=== PATIENT | female | born 1955 | race Caucasian/White ===

== ENCOUNTER → 2018-09-27 | Day surgery (SDC) | payer BC ==
[~2018-09-27] MED LIST: METH500T PO; diatrozoate meglu/diatrozoate sod (37% iodine) 120ML oral solution ONE
== END | disposition home or self-care (01) ==
LOC: RAD 09:40
PROVIDERS: ATTEND Surgery
DX: K63.89 Other specified diseases of intestine (principal); Z43.3 Encounter for attention to colostomy
CPT/HCPCS: 74270; Q9963

== ENCOUNTER → 2018-10-06 | Day surgery (SDC) | payer BC | END | disposition home or self-care (01) | LOC: RAD 10:48 | PROVIDERS: ATTEND Surgery | DX: Z43.3 Encounter for attention to colostomy (principal) | CPT/HCPCS: 74270; Q9963 ==

== ENCOUNTER 2021-11-20 17:21 | Emergency (ER) | payer BC, MEDICARE ==
[~2021-11-20] VITALS: Ht 154.9 cm; Wt 63.6 kg
[~2021-11-20 17:21] MED LIST changes: +LINE600T11 PO; -METH500T PO; +NO HOME MEDS; +SULF1TAB49 PO; -diatrozoate meglu/diatrozoate sod (37% iodine) 120ML oral solution ONE
[2021-11-20 18:15] VITALS: BP 141/75
[2021-11-20] MEDS ORDERED: naproxen 500mg tablet PO ONE (19:50)
== END 2021-11-20 20:01 | disposition home or self-care (01) ==
LOC: ER 17:22
DX: S20.212A Contusion of left front wall of thorax, initial encounter (principal); Z88.1 Allergy status to other antibiotic agents; Z88.8 Allergy status to other drugs, medicaments and biological substances; Z79.899 Other long term (current) drug therapy; W18.09XA Striking against other object with subsequent fall, initial encounter; Z91.81 History of falling; Y93.89 Activity, other specified; Y92.89 Other specified places as the place of occurrence of the external cause; Y99.8 Other external cause status
CPT/HCPCS: 71100; 99284

== ENCOUNTER 2023-04-16 16:16 | Emergency (ER) | payer BC, MEDICARE ==
[~2023-04-16] VITALS: Ht 154.9 cm; Wt 53.7 kg
[2023-04-16 17:13] LABS: D-DIMER 1.74 MG/L FEU (0-0.50)
--- NOTE | 2023-04-16 18:37 | NUR ---
PAGED AJAY X2.
--- NOTE | 2023-04-16 19:12 | NUR ---
AGREE WITH LAUREN, SOLAR MAINTENANCE TECHNICIAN ASSESSMENT, REVIEWED.
[2023-04-16 20:24] VITALS: BP 150/72; PULSE 78; RESP 18; TEMP 98.2; O2SAT 99
== END 2023-04-16 20:32 | disposition home or self-care (01) ==
LOC: ER 16:17
DX: M79.605 Pain in left leg (principal); R19.09 Other intra-abdominal and pelvic swelling, mass and lump
CPT/HCPCS: 36415; 85379; 93971; 99284

== ENCOUNTER 2023-06-20 15:16 | Emergency (ER) | payer BC, MEDICARE ==
[~2023-06-20] VITALS: Ht 154.9 cm; Wt 49.5 kg
[2023-06-20 16:04] VITALS: BP 187/109; PULSE 79; O2SAT 95
[2023-06-20 16:14] VITALS: RESP 18
[2023-06-20 16:48] LABS: BILIRUBIN,URINE NEGATIVE (Neg); CLARITY,URINE CLEAR (Clear); COLOR,URINE YELLOW (Yellow); GLUCOSE, URINE NEGATIVE (Neg); KETONES,URINE NEGATIVE (Neg); LEUKOCYTE ESTERASE ,URINE NEGATIVE (Neg); NITRITES, URINE NEGATIVE (Neg); OCCULT BLOOD,URINE NEGATIVE (Neg); PROTEIN,URINE NEGATIVE (Neg); UROBILINOGEN,URINE 0.2 E.U/dL (0.2-1.0)
[2023-06-20 16:51] LABS: UA COLLECTION TYPE CLN CATCH MIDSTREAM
[2023-06-20 16:55] LABS: BASOPHILS % (AUTO) 0.3 % (0-1); EOSINOPHILS # (AUTO) 0.1 X10'3 (0-0.9); EOSINOPHILS % (AUTO) 1.1 % (0-6); HEMATOCRIT 33.5 % (35.0-45.0); LYMPHOCYTES # (AUTO) 1.8 X10'3 (1.1-4.8); LYMPHOCYTES % (AUTO) 22.1 % (21-51); MEAN CORPUSCULAR HEMOGLOBIN 28.6 PG (27.0-31.0); MEAN CORPUSCULAR HGB CONC 32.8 g/dL (33.0-36.5); MEAN CORPUSCULAR VOLUME 87.3 FL (78-98); MEAN PLATELET VOLUME 7.5 FL (7.4-10.4); MONOCYTES # (AUTO) 0.3 X10'3 (0-0.9); MONOCYTES % (AUTO) 4.1 % (2-12); NEUTROPHILS # (AUTO) 5.8 X10'3 (1.8-7.7); NEUTROPHILS % (AUTO) 72.4 % (42-75); PLATELET COUNT 475 X10'3 (140-440); RED BLOOD COUNT 3.84 X10'6 (4.20-5.60); RED CELL DISTRIBUTION WIDTH 16.5 % (11.5-14.5)
[2023-06-20 17:05] LABS: ALANINE AMINOTRANSFERASE 12 U/L (12-78); ALBUMIN 2.6 G/DL (3.4-5.0); ALBUMIN/GLOBULIN RATIO 0.5 (1.1-1.5); ALKALINE PHOSPHATASE 115 IU/L (46-116); ANION GAP 11 (8-16); ASPARTATE AMINO TRANSFERASE 21 U/L (10-37); BILIRUBIN,TOTAL 0.4 MG/DL (0.1-1.0); BLOOD UREA NITROGEN 8 MG/DL (7-18); BUN/CREATININE RATIO 9.6 (10.0-20.0); CALCIUM 8.7 MG/DL (8.5-10.1); CHLORIDE 103 MMOL/L (99-107); CREATININE 0.83 MG/DL (0.40-0.90); GLUCOSE 99 MG/DL (70-104); LIPASE 58 U/L (16-77); POTASSIUM 3.5 MMOL/L (3.5-5.1); SODIUM 140 MMOL/L (135-145); TOTAL PROTEIN 7.7 G/DL (6.4-8.2); eCRCL 50 ML/MIN; eGFR 69 ML/MIN
[2023-06-20] MEDS ORDERED: iohexol 300mg/ml 100ml inj. ONE (17:18)
[2023-06-20] MEDS ORDERED: HYDROcodone/acetaminophen 10/325mg tab PO ONE (19:00)
[2023-06-20] MEDS ORDERED: HYDR-3973 PO (19:14)
[2023-06-20 19:30] VITALS: TEMP 97.4
== END 2023-06-20 19:37 | disposition home or self-care (01) ==
LOC: ER 15:16
DX: C76.2 Malignant neoplasm of abdomen (principal); M54.50 Low back pain, unspecified; K62.89 Other specified diseases of anus and rectum; Z88.1 Allergy status to other antibiotic agents; Z88.8 Allergy status to other drugs, medicaments and biological substances; Z79.899 Other long term (current) drug therapy
CPT/HCPCS: 36415; 74177; 80053; 81003; 83690; 85025; 99285; J3490; Q9967

== ENCOUNTER 2023-08-25 09:34 | Outpatient (CLI) | payer BC, MEDICARE ==
[2023-08-25 10:12] LABS: ALBUMIN 2.3 G/DL (3.4-5.0); ANION GAP 12 (8-16); BLOOD UREA NITROGEN 10 MG/DL (7-18); BUN/CREATININE RATIO 12.3 (10.0-20.0); CALCIUM 8.3 MG/DL (8.5-10.1); CHLORIDE 107 MMOL/L (99-107); CREATININE 0.81 MG/DL (0.40-0.90); GLUCOSE 94 MG/DL (70-104); POTASSIUM 3.1 MMOL/L (3.5-5.1); SODIUM 142 MMOL/L (135-145); TOTAL CARBON DIOXIDE 23.2 MMOL/L (24-32); eGFR 71 ML/MIN
[2023-08-25] MEDS ORDERED: iohexol 300mg/ml 100ml inj. ONE (10:19)
== END 2023-08-25 23:59 | disposition home or self-care (01) ==
LOC: RAD 09:34
PROVIDERS: ATTEND Internal Medicine Interventional Cardiology
DX: C78.30 Secondary malignant neoplasm of unspecified respiratory organ (principal); C78.80 Secondary malignant neoplasm of unspecified digestive organ; K40.90 Unilateral inguinal hernia, without obstruction or gangrene, not specified as recurrent; N13.30 Unspecified hydronephrosis; K82.8 Other specified diseases of gallbladder; R07.9 Chest pain, unspecified; R00.0 Tachycardia, unspecified; R00.1 Bradycardia, unspecified; R91.1 Solitary pulmonary nodule; J98.11 Atelectasis
CPT/HCPCS: 36415; 71260; 74178; 80048; J3490; Q9967

== ENCOUNTER 2023-08-25 11:59 | Outpatient (CLI) | payer BC, MEDICARE ==
[2023-08-25 13:03] LABS: BASOPHILS # (AUTO) 0.1 X10'3 (0-0.2); BASOPHILS % (AUTO) 0.6 % (0-1); EOSINOPHILS # (AUTO) 0.1 X10'3 (0-0.9); EOSINOPHILS % (AUTO) 0.7 % (0-6); MEAN PLATELET VOLUME 6.9 FL (7.4-10.4); MONOCYTES # (AUTO) 0.6 X10'3 (0-0.9); WHITE BLOOD COUNT 9.2 X10'3 (4.5-11.0)
[2023-08-25 13:06] LABS: HEMATOCRIT 28.6 % (35.0-45.0); HEMOGLOBIN 9.7 g/dl (12.0-16.0); LYMPHOCYTES # (AUTO) 1.2 X10'3 (1.1-4.8); MEAN CORPUSCULAR HEMOGLOBIN 29.9 PG (27.0-31.0); MEAN CORPUSCULAR HGB CONC 33.8 g/dL (33.0-36.5); MEAN CORPUSCULAR VOLUME 88.6 FL (78-98); MONOCYTES % (AUTO) 6.8 % (2-12); NEUTROPHILS # (AUTO) 7.3 X10'3 (1.8-7.7); NEUTROPHILS % (AUTO) 78.9 % (42-75); PLATELET COUNT 656 X10'3 (140-440); RED BLOOD COUNT 3.23 X10'6 (4.20-5.60); RED CELL DISTRIBUTION WIDTH 18.8 % (11.5-14.5)
[2023-08-25 13:27] LABS: % IRON SATURATION 9 % (11-46); IRON 17 UG/DL (49-151); TOTAL IRON BINDING CAPACITY 184 UG/DL (259-388)
[2023-08-25 13:34] LABS: FERRITIN 380 NG/ML (8-252)
[2023-08-25 14:38] LABS: ANISOCYTOSIS 2+; BURR CELLS FEW; ELLIPTOCYTES FEW; PLATELET ESTIMATE INCREASED; POLYCHROMASIA FEW; SCHISTOCYTES FEW
== END 2023-08-25 23:59 | disposition home or self-care (01) ==
LOC: LAB 11:59
PROVIDERS: ATTEND Surgery
DX: C78.6 Secondary malignant neoplasm of retroperitoneum and peritoneum (principal)
CPT/HCPCS: 36415; 82728; 83540; 83550; 85008; 85025

== ENCOUNTER 2023-11-26 13:37 | Inpatient (IN) | payer BC, MEDICARE ==
[~2023-11-26] VITALS: Ht 160 cm; Wt 44.9 kg
[2023-11-26] MEDS: HYDROmorphone 1 mg/ml syringe IV ONE ×2 (14:49→18:31)
[2023-11-26] MEDS: ondansetron/PF 4mg/2ml inj IV ONE (14:49)
[2023-11-26 15:49] LABS: EOSINOPHILS % (AUTO) 0.2 % (0-6); HEMOGLOBIN 12.9 g/dl (12.0-16.0); MONOCYTES # (AUTO) 0.4 X10'3 (0-0.9); NEUTROPHILS # (AUTO) 16.2 X10'3 (1.8-7.7)
[2023-11-26 15:51] LABS: BASOPHILS # (AUTO) 0.1 X10'3 (0-0.2); BASOPHILS % (AUTO) 0.3 % (0-1); HEMATOCRIT 40.1 % (35.0-45.0); LYMPHOCYTES # (AUTO) 1.6 X10'3 (1.1-4.8); LYMPHOCYTES % (AUTO) 8.8 % (21-51); MEAN CORPUSCULAR HEMOGLOBIN 28.9 PG (27.0-31.0); MEAN CORPUSCULAR HGB CONC 32.2 g/dL (33.0-36.5); MEAN CORPUSCULAR VOLUME 89.7 FL (78-98); MEAN PLATELET VOLUME 7.4 FL (7.4-10.4); MONOCYTES % (AUTO) 2.3 % (2-12); NEUTROPHILS % (AUTO) 88.4 % (42-75); PLATELET COUNT 587 X10'3 (140-440); RED BLOOD COUNT 4.47 X10'6 (4.20-5.60); RED CELL DISTRIBUTION WIDTH 18.7 % (11.5-14.5); WHITE BLOOD COUNT 18.3 X10'3 (4.5-11.0)
[2023-11-26] MEDS: normal saline 1000ML IV soln IVB ONE (15:54)
[2023-11-26 16:00] LABS: ANION GAP 9 (8-16); BLOOD UREA NITROGEN 24 MG/DL (7-18); BUN/CREATININE RATIO 29.6 (10.0-20.0); CALCIUM 8.6 MG/DL (8.5-10.1); CHLORIDE 105 MMOL/L (99-107); CREATININE 0.81 MG/DL (0.40-0.90); GLUCOSE 135 MG/DL (70-104); LIPASE 86 U/L (16-77); POTASSIUM 3.3 MMOL/L (3.5-5.1); SODIUM 140 MMOL/L (135-145); TOTAL CARBON DIOXIDE 25.8 MMOL/L (24-32); eCRCL 57 ML/MIN; eGFR 71 ML/MIN
[2023-11-26] MEDS ORDERED: iohexol 300mg/ml 100ml inj. ONE (16:06)
[2023-11-26 16:14] LABS: ANISOCYTOSIS 2+; BURR CELLS FEW; PLATELET ESTIMATE INCREASED; TARGET CELLS FEW; TEAR DROP CELLS FEW
[2023-11-26 16:15] LABS: GIANT PLATELET FEW; LARGE PLATELETS FEW
[2023-11-26] MEDS ORDERED: FURO-150 PO (16:32)
[2023-11-26] MEDS ORDERED: HYDROmorphone 1 mg/ml syringe IM ONE (18:25)
[2023-11-26 20:32] LABS: BILIRUBIN,URINE NEGATIVE (Neg); CLARITY,URINE CLOUDY (Clear); COLOR,URINE YELLOW (Yellow); GLUCOSE, URINE NEGATIVE (Neg); KETONES,URINE NEGATIVE (Neg); LEUKOCYTE ESTERASE ,URINE MODERATE (Neg); NITRITES, URINE NEGATIVE (Neg); OCCULT BLOOD,URINE TRACE-INTACT (Neg); PH,URINE 6.5 (4.8-8.0); PROTEIN,URINE TRACE mg/dl (Neg); UROBILINOGEN,URINE 0.2 E.U/dL (0.2-1.0)
[2023-11-26 20:48] LABS: UA COLLECTION TYPE FOLEY CATH
[2023-11-26 20:50] LABS: BACTERIA,URINE 1+ /HPF (Neg); FINE GRANULAR CAST 0-3 /LPF (NEGATIVE); MUCUS STRANDS NONE SEEN /LPF (Neg); RBC,URINE 0-2 /HPF (0-2); SQUAMOUS EPITHELIAL CELL,UR FEW /LPF (FEW); TRANSITIONAL EPI CELLS,URINE FEW /HPF; WBC,URINE TNTC /HPF (0-4)
[2023-11-26] MEDS ORDERED: potassium Cl 20 mEq SR tablet PO PRN ×2 (20:55)
[2023-11-26] MEDS ORDERED: magnesium Cl slow-release 64mg tablet PO PRN (20:55)
[2023-11-26] MEDS ORDERED: magnesium 4gm in 100ml NS 100 ML IV PRN (20:55)
[2023-11-26] MEDS ORDERED: magnesium 2GM in 50ml NS 50 ML IV PRN (20:55)
[2023-11-26] MEDS: CefTRIAXone/D5W-Rocephin 1gm 50 ML IV SCH (22:03)
[2023-11-26] MEDS: normal saline 1000ml 1,000 ML IV SCH (22:03)
[2023-11-26] MEDS: metroNIDAZOLE-Flagyl 500mg/NS 100 ML IV SCH (22:43)
[2023-11-26 23:00] VITALS: BP 165/95; PULSE 77; RESP 16; TEMP 97.5; O2SAT 98
[2023-11-27] VITALS (7 sets, daily range): BP systolic 120–159; BP diastolic 69–98; PULSE 60–80; RESP 14–16; TEMP 97.5–98; O2SAT 93–98
[2023-11-27] MEDS ORDERED: cefoxitin sod inj 2,000 MG in normal saline 100ml IV soln 100 ML IV SCH
[2023-11-27] MEDS: morphine 2 MG/ML inj. syringe IV PRN (03:59)
[2023-11-27 07:37] LABS: BASOPHILS % (AUTO) 0.4 % (0-1); EOSINOPHILS # (AUTO) 0.1 X10'3 (0-0.9); EOSINOPHILS % (AUTO) 1.4 % (0-6); HEMOGLOBIN 10.9 g/dl (12.0-16.0); LYMPHOCYTES # (AUTO) 1.6 X10'3 (1.1-4.8); LYMPHOCYTES % (AUTO) 20.4 % (21-51); MEAN CORPUSCULAR HEMOGLOBIN 29.6 PG (27.0-31.0); MEAN CORPUSCULAR HGB CONC 32.9 g/dL (33.0-36.5); MEAN CORPUSCULAR VOLUME 89.9 FL (78-98); MEAN PLATELET VOLUME 7.3 FL (7.4-10.4); MONOCYTES # (AUTO) 0.6 X10'3 (0-0.9); NEUTROPHILS # (AUTO) 5.4 X10'3 (1.8-7.7); NEUTROPHILS % (AUTO) 69.8 % (42-75); PLATELET COUNT 519 X10'3 (140-440); RED BLOOD COUNT 3.67 X10'6 (4.20-5.60); RED CELL DISTRIBUTION WIDTH 18.4 % (11.5-14.5); WHITE BLOOD COUNT 7.8 X10'3 (4.5-11.0)
[2023-11-27 07:48] LABS: APTT 28 SECONDS (22-32); PROTHROMBIN TIME 10.9 SECONDS (9.0-12.0)
[2023-11-27 08:19] LABS: ALANINE AMINOTRANSFERASE 20 U/L (12-78); ALBUMIN 2.6 G/DL (3.4-5.0); ALBUMIN/GLOBULIN RATIO 0.6 (1.1-1.5); ALKALINE PHOSPHATASE 81 IU/L (46-116); ANION GAP 10 (8-16); ASPARTATE AMINO TRANSFERASE 14 U/L (10-37); BILIRUBIN,TOTAL 0.4 MG/DL (0.1-1.0); BLOOD UREA NITROGEN 24 MG/DL (7-18); CALCIUM 8.1 MG/DL (8.5-10.1); CHLORIDE 108 MMOL/L (99-107); CHOL/HDL RATIO 3.6 (0.00-4.99); CHOLESTEROL 198 MG/DL (0-200); CREATININE 0.89 MG/DL (0.40-0.90); FREE T4 (FREE THYROXINE) 0.96 NG/DL (0.73-1.40); GLUCOSE 115 MG/DL (70-104); HDL CHOLESTEROL 55 MG/DL (35-60); LDL CHOLESTEROL 126 MG/DL (50-100); MAGNESIUM 2.3 MG/DL (1.5-2.4); PHOSPHORUS 4.3 MG/DL (2.3-4.5); SODIUM 143 MMOL/L (135-145); THYROID STIMULATING HORMONE 0.81 ulU/ml (0.34-4.50); TOTAL CARBON DIOXIDE 25.2 MMOL/L (24-32); TOTAL PROTEIN 6.7 G/DL (6.4-8.2); TRIGLYCERIDES 72 MG/DL (20-135); eCRCL 51 ML/MIN; eGFR 63 ML/MIN
[2023-11-27 08:42] LABS: HEMOGLOBIN A1C 5.6 % (4.5-6.2)
[2023-11-27] MEDS: K and/or MAG REPLACEMENT MC SCH (08:57)
[2023-11-27] MEDS: potassium Cl 40MEQ/1/2NS 520ml 520 ML IV PRN (09:12)
[2023-11-27] MEDS: HYDROmorphone 1 mg/ml syringe IV PRN (15:26)
[2023-11-27] MEDS: ondansetron/PF 4mg/2ml inj IV PRN (15:26)
[2023-11-28 06:00] VITALS: BP 121/70; PULSE 76; RESP 15; TEMP 97.5; O2SAT 97
[2023-11-28 06:17] LABS: BASOPHILS % (AUTO) 0.9 % (0-1); EOSINOPHILS # (AUTO) 0.3 X10'3 (0-0.9); EOSINOPHILS % (AUTO) 6.7 % (0-6); HEMATOCRIT 32.4 % (35.0-45.0); HEMOGLOBIN 10.3 g/dl (12.0-16.0); MEAN CORPUSCULAR HEMOGLOBIN 29.2 PG (27.0-31.0); MEAN CORPUSCULAR HGB CONC 31.7 g/dL (33.0-36.5); MEAN CORPUSCULAR VOLUME 91.9 FL (78-98); MEAN PLATELET VOLUME 7.2 FL (7.4-10.4); MONOCYTES # (AUTO) 0.5 X10'3 (0-0.9); MONOCYTES % (AUTO) 11.5 % (2-12); NEUTROPHILS # (AUTO) 2.2 X10'3 (1.8-7.7); NEUTROPHILS % (AUTO) 55.9 % (42-75); PLATELET COUNT 468 X10'3 (140-440); RED BLOOD COUNT 3.52 X10'6 (4.20-5.60); RED CELL DISTRIBUTION WIDTH 18.4 % (11.5-14.5)
[2023-11-28 06:31] LABS: APTT 29 SECONDS (22-32); INR 1.1 INR; PROTHROMBIN TIME 11.4 SECONDS (9.0-12.0)
[2023-11-28 06:39] LABS: ALANINE AMINOTRANSFERASE 17 U/L (12-78); ALBUMIN 2.7 G/DL (3.4-5.0); ALBUMIN/GLOBULIN RATIO 0.7 (1.1-1.5); ALKALINE PHOSPHATASE 75 IU/L (46-116); ANION GAP 11 (8-16); ASPARTATE AMINO TRANSFERASE 13 U/L (10-37); BILIRUBIN,TOTAL 0.4 MG/DL (0.1-1.0); BLOOD UREA NITROGEN 21 MG/DL (7-18); BUN/CREATININE RATIO 23.6 (10.0-20.0); CALCIUM 8.2 MG/DL (8.5-10.1); CHLORIDE 112 MMOL/L (99-107); CREATININE 0.89 MG/DL (0.40-0.90); GLUCOSE 101 MG/DL (70-104); MAGNESIUM 2.3 MG/DL (1.5-2.4); PHOSPHORUS 2.9 MG/DL (2.3-4.5); POTASSIUM 4.1 MMOL/L (3.5-5.1); SODIUM 146 MMOL/L (135-145); TOTAL CARBON DIOXIDE 23.3 MMOL/L (24-32); TOTAL PROTEIN 6.7 G/DL (6.4-8.2); eCRCL 51 ML/MIN; eGFR 63 ML/MIN
[2023-11-28 08:20] VITALS: RESP 16
[2023-11-28 10:44] VITALS: BP 128/61; PULSE 96; RESP 18; TEMP 98; O2SAT 62
[2023-11-28 18:00] VITALS: BP 149/75; PULSE 77; RESP 14; TEMP 98.7; O2SAT 97
[2023-11-28 20:00] VITALS: RESP 16; O2SAT 97
[2023-11-28] MEDS: enoxaparin 30mg/0.3ml syringe SUBCUT SCH (20:00)
[2023-11-28 22:00] VITALS: BP 149/89; PULSE 74; RESP 16; TEMP 98.2; O2SAT 97
[2023-11-29 05:25] VITALS: BP 156/75; PULSE 73; RESP 20; TEMP 98.3; O2SAT 96
[2023-11-29 06:59] LABS: BASOPHILS % (AUTO) 0.5 % (0-1); EOSINOPHILS # (AUTO) 0.3 X10'3 (0-0.9); EOSINOPHILS % (AUTO) 6.4 % (0-6); HEMATOCRIT 31.6 % (35.0-45.0); HEMOGLOBIN 10.1 g/dl (12.0-16.0); LYMPHOCYTES # (AUTO) 1.4 X10'3 (1.1-4.8); MEAN CORPUSCULAR HEMOGLOBIN 29.4 PG (27.0-31.0); MEAN CORPUSCULAR VOLUME 91.7 FL (78-98); MEAN PLATELET VOLUME 7.9 FL (7.4-10.4); MONOCYTES # (AUTO) 0.6 X10'3 (0-0.9); MONOCYTES % (AUTO) 12.8 % (2-12); NEUTROPHILS # (AUTO) 2.7 X10'3 (1.8-7.7); NEUTROPHILS % (AUTO) 53.3 % (42-75); PLATELET COUNT 412 X10'3 (140-440); RED BLOOD COUNT 3.44 X10'6 (4.20-5.60); RED CELL DISTRIBUTION WIDTH 18.2 % (11.5-14.5)
[2023-11-29 07:10] LABS: APTT 29 SECONDS (22-32); INR 1.1 INR
[2023-11-29 07:17] LABS: ALANINE AMINOTRANSFERASE 18 U/L (12-78); ALBUMIN 2.6 G/DL (3.4-5.0); ALBUMIN/GLOBULIN RATIO 0.6 (1.1-1.5); ALKALINE PHOSPHATASE 71 IU/L (46-116); ANION GAP 13 (8-16); ASPARTATE AMINO TRANSFERASE 16 U/L (10-37); BILIRUBIN,TOTAL 0.4 MG/DL (0.1-1.0); BLOOD UREA NITROGEN 15 MG/DL (7-18); BUN/CREATININE RATIO 19.7 (10.0-20.0); CALCIUM 8.1 MG/DL (8.5-10.1); CHLORIDE 111 MMOL/L (99-107); CREATININE 0.76 MG/DL (0.40-0.90); GLUCOSE 70 MG/DL (70-104); PHOSPHORUS 2.6 MG/DL (2.3-4.5); POTASSIUM 3.7 MMOL/L (3.5-5.1); SODIUM 145 MMOL/L (135-145); TOTAL CARBON DIOXIDE 20.7 MMOL/L (24-32); TOTAL PROTEIN 6.7 G/DL (6.4-8.2); eCRCL 60 ML/MIN; eGFR 76 ML/MIN
[2023-11-29 08:00] VITALS: RESP 16
[2023-11-29 10:40] VITALS: BP 141/74; PULSE 71; RESP 14; TEMP 98; O2SAT 99
[2023-11-29 17:37] LABS: PRO BRAIN NATRIURETIC PEPTIDE 1191 PG/ML (0-125)
[2023-11-29 18:00] VITALS: BP 153/87; PULSE 78; RESP 18; TEMP 97.4; O2SAT 94
[2023-11-29 20:00] VITALS: RESP 18
[2023-11-29 22:00] VITALS: BP 163/79; PULSE 67; RESP 16; TEMP 98; O2SAT 100
[2023-11-30 06:00] VITALS: BP 166/76; PULSE 69; RESP 15; TEMP 98.1; O2SAT 97
[2023-11-30 06:02] LABS: BASOPHILS % (AUTO) 0.6 % (0-1); EOSINOPHILS # (AUTO) 0.2 X10'3 (0-0.9); EOSINOPHILS % (AUTO) 3.8 % (0-6); HEMATOCRIT 31.5 % (35.0-45.0); HEMOGLOBIN 10.1 g/dl (12.0-16.0); LYMPHOCYTES # (AUTO) 1.8 X10'3 (1.1-4.8); LYMPHOCYTES % (AUTO) 36.5 % (21-51); MEAN CORPUSCULAR HEMOGLOBIN 29.1 PG (27.0-31.0); MEAN CORPUSCULAR HGB CONC 31.9 g/dL (33.0-36.5); MEAN CORPUSCULAR VOLUME 91.3 FL (78-98); MEAN PLATELET VOLUME 8.1 FL (7.4-10.4); MONOCYTES # (AUTO) 0.7 X10'3 (0-0.9); MONOCYTES % (AUTO) 13.3 % (2-12); NEUTROPHILS # (AUTO) 2.3 X10'3 (1.8-7.7); NEUTROPHILS % (AUTO) 45.8 % (42-75); PLATELET COUNT 405 X10'3 (140-440); RED BLOOD COUNT 3.45 X10'6 (4.20-5.60); RED CELL DISTRIBUTION WIDTH 18.1 % (11.5-14.5)
[2023-11-30 06:10] LABS: INR 1.2 INR; PROTHROMBIN TIME 12.3 SECONDS (9.0-12.0)
[2023-11-30 06:19] LABS: ALANINE AMINOTRANSFERASE 12 U/L (12-78); ALBUMIN 2.6 G/DL (3.4-5.0); ALBUMIN/GLOBULIN RATIO 0.6 (1.1-1.5); ALKALINE PHOSPHATASE 71 IU/L (46-116); ANION GAP 14 (8-16); ASPARTATE AMINO TRANSFERASE 14 U/L (10-37); BILIRUBIN,TOTAL 0.5 MG/DL (0.1-1.0); BLOOD UREA NITROGEN 12 MG/DL (7-18); BUN/CREATININE RATIO 15.8 (10.0-20.0); CALCIUM 8.3 MG/DL (8.5-10.1); CHLORIDE 108 MMOL/L (99-107); CREATININE 0.76 MG/DL (0.40-0.90); GLUCOSE 63 MG/DL (70-104); MAGNESIUM 1.9 MG/DL (1.5-2.4); PHOSPHORUS 2.5 MG/DL (2.3-4.5); POTASSIUM 3.2 MMOL/L (3.5-5.1); SODIUM 143 MMOL/L (135-145); TOTAL CARBON DIOXIDE 20.7 MMOL/L (24-32); TOTAL PROTEIN 6.9 G/DL (6.4-8.2); eCRCL 60 ML/MIN; eGFR 76 ML/MIN
[2023-11-30 08:00] VITALS: RESP 18
[2023-11-30] MEDS ORDERED: magnesium 2GM in 50ml NS 50 ML IV PRN (09:50)
[2023-11-30] MEDS ORDERED: magnesium 4gm in 100ml NS 100 ML IV PRN (09:50)
[2023-11-30 10:00] VITALS: BP 168/71; PULSE 70; RESP 16; TEMP 98.5; O2SAT 98
[2023-11-30] MEDS: cefepime 1GM/NS ADD-VANTAGE 100 ML IV SCH (10:37)
[2023-11-30] MEDS: dextrose 5%-1/2 normal saline 1,000 ML IV SCH (12:53)
[2023-11-30] MEDS: potassium Cl 40MEQ/1/2NS 520ml 520 ML IV PRN (12:53)
[2023-11-30] MEDS: furosemide 40mg/4ml inj IV SCH (16:52)
[2023-11-30 18:00] VITALS: BP 163/90; PULSE 70; RESP 14; TEMP 97.5; O2SAT 98
[2023-11-30 22:00] VITALS: BP 151/82; PULSE 69; RESP 13; TEMP 98; O2SAT 99
[2023-12-01 06:00] VITALS: BP 146/77; PULSE 66; RESP 13; TEMP 97.9; O2SAT 99
[2023-12-01 06:44] LABS: BASOPHILS # (AUTO) 0.1 X10'3 (0-0.2); BASOPHILS % (AUTO) 1.6 % (0-1); EOSINOPHILS # (AUTO) 0.3 X10'3 (0-0.9); EOSINOPHILS % (AUTO) 4.6 % (0-6); HEMATOCRIT 31.6 % (35.0-45.0); HEMOGLOBIN 10.2 g/dl (12.0-16.0); LYMPHOCYTES # (AUTO) 1.8 X10'3 (1.1-4.8); MEAN CORPUSCULAR HEMOGLOBIN 28.8 PG (27.0-31.0); MEAN CORPUSCULAR HGB CONC 32.2 g/dL (33.0-36.5); MEAN CORPUSCULAR VOLUME 89.5 FL (78-98); MONOCYTES # (AUTO) 0.7 X10'3 (0-0.9); MONOCYTES % (AUTO) 12.8 % (2-12); NEUTROPHILS # (AUTO) 2.7 X10'3 (1.8-7.7); PLATELET COUNT 393 X10'3 (140-440); RED BLOOD COUNT 3.53 X10'6 (4.20-5.60); RED CELL DISTRIBUTION WIDTH 17.8 % (11.5-14.5); WHITE BLOOD COUNT 5.6 X10'3 (4.5-11.0)
[2023-12-01 06:59] LABS: INR 1.1 INR; PROTHROMBIN TIME 12.2 SECONDS (9.0-12.0)
[2023-12-01 07:16] LABS: ALANINE AMINOTRANSFERASE 15 U/L (12-78); ALBUMIN 2.6 G/DL (3.4-5.0); ALBUMIN/GLOBULIN RATIO 0.7 (1.1-1.5); ALKALINE PHOSPHATASE 66 IU/L (46-116); ANION GAP 9 (8-16); ASPARTATE AMINO TRANSFERASE 17 U/L (10-37); BILIRUBIN,TOTAL 0.4 MG/DL (0.1-1.0); BLOOD UREA NITROGEN 10 MG/DL (7-18); BUN/CREATININE RATIO 12.5 (10.0-20.0); CALCIUM 8.1 MG/DL (8.5-10.1); CHLORIDE 107 MMOL/L (99-107); GLUCOSE 112 MG/DL (70-104); MAGNESIUM 1.6 MG/DL (1.5-2.4); PHOSPHORUS 2.2 MG/DL (2.3-4.5); SODIUM 142 MMOL/L (135-145); TOTAL CARBON DIOXIDE 25.7 MMOL/L (24-32); TOTAL PROTEIN 6.6 G/DL (6.4-8.2); eCRCL 57 ML/MIN; eGFR 72 ML/MIN
[2023-12-01 07:31] LABS: POTASSIUM 2.8 MMOL/L (3.5-5.1)
[2023-12-01 08:10] VITALS: RESP 20; O2SAT 96
[2023-12-01 10:00] VITALS: BP 165/86; PULSE 76; RESP 16; TEMP 98; O2SAT 98
[2023-12-01] MEDS: morphine 2 MG/ML inj. syringe IV PRN (11:58)
[2023-12-01] MEDS ORDERED: magnesium sulf-water 2g/50mL 50 ML IV PRN (12:55)
[2023-12-01] MEDS ORDERED: magnesium sulf-water 4G/100mL 100 ML IV PRN (12:55)
[2023-12-01 18:00] VITALS: BP 166/85; PULSE 70; RESP 14; TEMP 98.2; O2SAT 99
[2023-12-01 20:20] VITALS: RESP 16
[2023-12-01 22:00] VITALS: BP 158/80; PULSE 75; RESP 12; TEMP 98; O2SAT 93
[2023-12-02 06:00] VITALS: BP 159/90; PULSE 71; RESP 15; TEMP 97.4; O2SAT 98
[2023-12-02 07:55] VITALS: RESP 16
[2023-12-02 10:00] VITALS: BP 148/91; PULSE 91; RESP 16; TEMP 97.8; O2SAT 94
[2023-12-02 10:53] LABS: ALANINE AMINOTRANSFERASE 16 U/L (12-78); ALBUMIN 2.9 G/DL (3.4-5.0); ALBUMIN/GLOBULIN RATIO 0.6 (1.1-1.5); ALKALINE PHOSPHATASE 73 IU/L (46-116); ANION GAP 11 (8-16); ASPARTATE AMINO TRANSFERASE 19 U/L (10-37); BILIRUBIN,TOTAL 0.4 MG/DL (0.1-1.0); BLOOD UREA NITROGEN 5 MG/DL (7-18); BUN/CREATININE RATIO 6.8 (10.0-20.0); CALCIUM 8.6 MG/DL (8.5-10.1); CHLORIDE 101 MMOL/L (99-107); CREATININE 0.74 MG/DL (0.40-0.90); GLUCOSE 108 MG/DL (70-104); SODIUM 141 MMOL/L (135-145); TOTAL CARBON DIOXIDE 29.2 MMOL/L (24-32); TOTAL PROTEIN 7.5 G/DL (6.4-8.2); eCRCL 62 ML/MIN; eGFR 79 ML/MIN
[2023-12-02 12:48] LABS: MAGNESIUM 1.5 MG/DL (1.5-2.4); PHOSPHORUS 2.2 MG/DL (2.3-4.5); PREALBUMIN 14.3 MG/DL (19-36); TRIGLYCERIDES 112 MG/DL (20-135)
[2023-12-02] MEDS ORDERED: potassium Cl 20 mEq SR tablet PO PRN ×2 (13:50)
[2023-12-02] MEDS ORDERED: magnesium Cl slow-release 64mg tablet PO PRN (13:50)
[2023-12-02] MEDS ORDERED: Dextrose 10%-water IV solution 1,000 ML IV PRN (14:45)
[2023-12-02 18:00] VITALS: BP 146/93; PULSE 81; RESP 18; TEMP 98.6; O2SAT 94
[2023-12-02] MEDS: HYDROmorphone 1 mg/ml syringe IV PRN (18:52)
[2023-12-02] MEDS ORDERED: POTASSIUM CHLORIDE 20 MEQ/15 ML oral solution PO PRN (19:10)
[2023-12-02] MEDS: fat emulsion 20% inj. 100 ML IV SCH (19:58)
[2023-12-02 20:00] VITALS: RESP 16
[2023-12-02] MEDS: MVI, adult No.4 with vit. K 10 ML in dextrose 5% water 500ml 500 ML IV SCH (20:00)
[2023-12-02 22:00] VITALS: BP 166/91; PULSE 72; RESP 14; TEMP 98; O2SAT 95
[2023-12-03] MEDS: INSULIN LISPRO 100 UNIT/ML INSULN.PEN MULTI-DOSE SQ SCH (01:09)
[2023-12-03] MEDS: HYDROmorphone 1 mg/ml syringe IV PRN (01:22)
[2023-12-03 04:04] LABS: ANION GAP 5 (8-16); BLOOD UREA NITROGEN 6 MG/DL (7-18); BUN/CREATININE RATIO 8.1 (10.0-20.0); CHLORIDE 95 MMOL/L (99-107); CREATININE 0.74 MG/DL (0.40-0.90); GLUCOSE 346 MG/DL (70-104); POTASSIUM 4.7 MMOL/L (3.5-5.1); SODIUM 130 MMOL/L (135-145); TOTAL CARBON DIOXIDE 30.4 MMOL/L (24-32)
[2023-12-03 04:05] LABS: ALANINE AMINOTRANSFERASE 15 U/L (12-78); ALBUMIN 2.3 G/DL (3.4-5.0); ALBUMIN/GLOBULIN RATIO 0.6 (1.1-1.5); ALKALINE PHOSPHATASE 55 IU/L (46-116); ASPARTATE AMINO TRANSFERASE 19 U/L (10-37); BILIRUBIN,TOTAL 0.3 MG/DL (0.1-1.0); CALCIUM 8.1 MG/DL (8.5-10.1); MAGNESIUM 1.8 MG/DL (1.5-2.4); PHOSPHORUS 5.7 MG/DL (2.3-4.5); PREALBUMIN 12.7 MG/DL (19-36); TOTAL PROTEIN 6.1 G/DL (6.4-8.2); TRIGLYCERIDES 81 MG/DL (20-135); eCRCL 62 ML/MIN; eGFR 79 ML/MIN
[2023-12-03 06:00] VITALS: BP 147/90; PULSE 72; RESP 14; TEMP 97.3; O2SAT 95
[2023-12-03] MEDS ORDERED: glucagon, human recombinant 1mg kit SUBCUT PRN (07:30)
[2023-12-03] MEDS ORDERED: dextrose 50%-water 50ml dispensing syringe IV PRN ×2 (07:30)
[2023-12-03] MEDS ORDERED: DEXTROSE 15 GM of carb/4 tabs (each vial/BOTTLE has 4 tablets) PO PRN ×2 (07:30)
[2023-12-03 08:00] VITALS: RESP 14; O2SAT 96
[2023-12-03 10:00] VITALS: BP 143/84; PULSE 76; RESP 16; TEMP 97.3; O2SAT 95
[2023-12-03] MEDS ORDERED: tizanidine 4mg tablet PO PRN (16:35)
[2023-12-03 18:00] VITALS: BP 157/100; PULSE 85; RESP 16; TEMP 97.4; O2SAT 97
[2023-12-03 20:00] VITALS: RESP 15; O2SAT 97
[2023-12-03 22:00] VITALS: BP 140/83; PULSE 64; RESP 16; TEMP 97.8; O2SAT 92
[2023-12-04 06:00] VITALS: BP 147/71; PULSE 67; RESP 16; TEMP 97.8; O2SAT 97
[2023-12-04 08:00] VITALS: RESP 16; O2SAT 97
[2023-12-04] MEDS ORDERED: amLODIPine 5mg tablet PO ONE (08:00)
[2023-12-04 08:07] LABS: BASOPHILS % (AUTO) 0.6 % (0-1); EOSINOPHILS # (AUTO) 0.5 X10'3 (0-0.9); EOSINOPHILS % (AUTO) 6.3 % (0-6); HEMATOCRIT 32.6 % (35.0-45.0); HEMOGLOBIN 10.8 g/dl (12.0-16.0); LYMPHOCYTES # (AUTO) 1.8 X10'3 (1.1-4.8); LYMPHOCYTES % (AUTO) 24.4 % (21-51); MEAN CORPUSCULAR HEMOGLOBIN 29.2 PG (27.0-31.0); MEAN CORPUSCULAR VOLUME 88.6 FL (78-98); MEAN PLATELET VOLUME 7.8 FL (7.4-10.4); MONOCYTES # (AUTO) 0.8 X10'3 (0-0.9); MONOCYTES % (AUTO) 10.8 % (2-12); NEUTROPHILS # (AUTO) 4.2 X10'3 (1.8-7.7); NEUTROPHILS % (AUTO) 57.9 % (42-75); PLATELET COUNT 408 X10'3 (140-440); RED BLOOD COUNT 3.68 X10'6 (4.20-5.60); WHITE BLOOD COUNT 7.2 X10'3 (4.5-11.0)
[2023-12-04] MEDS ORDERED: ONDA-243 PO (08:37)
[2023-12-04] MEDS ORDERED: FURO-150 PO (08:37)
[2023-12-04] MEDS ORDERED: HYDR-3965 PO (08:37)
[2023-12-04] MEDS: amLODIPine 5mg tablet PO SCH (09:17)
[2023-12-04 09:53] LABS: ALANINE AMINOTRANSFERASE 13 U/L (12-78); ALBUMIN 2.4 G/DL (3.4-5.0); ALBUMIN/GLOBULIN RATIO 0.6 (1.1-1.5); ALKALINE PHOSPHATASE 63 IU/L (46-116); ANION GAP 6 (8-16); ASPARTATE AMINO TRANSFERASE 20 U/L (10-37); BILIRUBIN,TOTAL 0.3 MG/DL (0.1-1.0); BLOOD UREA NITROGEN 11 MG/DL (7-18); BUN/CREATININE RATIO 13.8 (10.0-20.0); CALCIUM 8.6 MG/DL (8.5-10.1); CHLORIDE 99 MMOL/L (99-107); GLUCOSE 107 MG/DL (70-104); SODIUM 136 MMOL/L (135-145); TOTAL CARBON DIOXIDE 31.1 MMOL/L (24-32); TOTAL PROTEIN 6.7 G/DL (6.4-8.2); eCRCL 49 ML/MIN; eGFR 72 ML/MIN
[2023-12-04 10:00] VITALS: BP 116/68; PULSE 64; RESP 14; TEMP 97.6; O2SAT 97
[2023-12-04] MEDS: POTASSIUM CHLORIDE 20 MEQ/15 ML oral solution PO PRN (10:27)
[2023-12-04 13:35] VITALS: RESP 20
== END 2023-12-04 14:20 | disposition home health service (06) | DRG 371 ==
LOC: ER 13:38 → ED HOLD 20:51 → EDBEDREQ 22:23 → ORTHO 4S 23:00
PROVIDERS: ADMIT Internal Medicine Pulmonary Disease; ATTEND Internal Medicine
PROC: BW211ZZ Computerized Tomography (CT Scan) of Abdomen and Pelvis using Low Osmolar Contrast (ICD-10-PCS; principal; 2023-11-26)
PROC: 0D9670Z Drainage of Stomach with Drainage Device, Via Natural or Artificial Opening (ICD-10-PCS; 2023-11-26)
PROC: 05HC33Z Insertion of Infusion Device into Left Basilic Vein, Percutaneous Approach (ICD-10-PCS; 2023-12-02)
PROC: B54NZZA Ultrasonography of Left Upper Extremity Veins, Guidance (ICD-10-PCS; 2023-12-02)
DX: K65.8 Other peritonitis (principal); E43 Unspecified severe protein-calorie malnutrition; K56.609 Unspecified intestinal obstruction, unspecified as to partial versus complete obstruction; N39.0 Urinary tract infection, site not specified; Z68.1 Body mass index [BMI] 19.9 or less, adult; E87.6 Hypokalemia; Z90.81 Acquired absence of spleen; Z93.3 Colostomy status
CPT/HCPCS: 36410; 36415; 74177; 76770; 76937; 80048; 80053; 80061; 81001; 82948; 83036; 83605; 83690; 83735; 83880; 84100; 84134; 84439; 84443; 84478; 85008; 85025; 85610; 85730; 87040; 87077; 87081; 87088; 87186; 99285; A4421; A4615; A4649; A6258; A6449; C1751; G0378; J0692; J0696; J1170; J1650; J1815; J1940; J2270; J2405; J3480; J3490; J7030; J7040; J7060; Q9967

== ENCOUNTER 2023-12-09 21:42 | Inpatient (IN) | payer BC, MEDICARE ==
[~2023-12-09] VITALS: Ht 154.9 cm; Wt 49.2 kg
[~2023-12-09 21:42] MED LIST changes: +FURO-150 PO; +HYDR-3965 PO; -LINE600T11 PO; -NO HOME MEDS; +ONDA-243 PO; -SULF1TAB49 PO
[2023-12-09] MEDS: normal saline 1000ml 1,000 ML IV ONE (22:28)
[2023-12-09] MEDS: morphine 4 MG/ML inj SYRINge IV ONE (22:29)
[2023-12-09] MEDS: ondansetron/PF 4mg/2ml inj IV ONE (22:29)
[2023-12-09 22:30] LABS: BASOPHILS # (AUTO) 0.1 X10'3 (0-0.2); BASOPHILS % (AUTO) 0.6 % (0-1); EOSINOPHILS # (AUTO) 0.2 X10'3 (0-0.9); EOSINOPHILS % (AUTO) 1.3 % (0-6); HEMOGLOBIN 12.3 g/dl (12.0-16.0); LYMPHOCYTES # (AUTO) 2.1 X10'3 (1.1-4.8); LYMPHOCYTES % (AUTO) 12.8 % (21-51); MEAN CORPUSCULAR HGB CONC 32.5 g/dL (33.0-36.5); MEAN CORPUSCULAR VOLUME 89.3 FL (78-98); MEAN PLATELET VOLUME 7.2 FL (7.4-10.4); MONOCYTES # (AUTO) 0.6 X10'3 (0-0.9); MONOCYTES % (AUTO) 3.9 % (2-12); NEUTROPHILS # (AUTO) 13.3 X10'3 (1.8-7.7); NEUTROPHILS % (AUTO) 81.4 % (42-75); PLATELET COUNT 586 X10'3 (140-440); RED BLOOD COUNT 4.25 X10'6 (4.20-5.60); RED CELL DISTRIBUTION WIDTH 18.4 % (11.5-14.5); WHITE BLOOD COUNT 16.3 X10'3 (4.5-11.0)
[2023-12-09 22:45] LABS: ALANINE AMINOTRANSFERASE 20 U/L (12-78); ALBUMIN/GLOBULIN RATIO 0.7 (1.1-1.5); ALKALINE PHOSPHATASE 83 IU/L (46-116); ANION GAP 9 (8-16); ASPARTATE AMINO TRANSFERASE 17 U/L (10-37); BILIRUBIN,TOTAL 0.6 MG/DL (0.1-1.0); BLOOD UREA NITROGEN 13 MG/DL (7-18); BUN/CREATININE RATIO 17.3 (10.0-20.0); CALCIUM 8.9 MG/DL (8.5-10.1); CHLORIDE 99 MMOL/L (99-107); CREATININE 0.75 MG/DL (0.40-0.90); GLUCOSE 124 MG/DL (70-104); LIPASE 104 U/L (16-77); SODIUM 137 MMOL/L (135-145); TOTAL CARBON DIOXIDE 29.1 MMOL/L (24-32); TOTAL PROTEIN 7.6 G/DL (6.4-8.2); eCRCL 53 ML/MIN; eGFR 77 ML/MIN
[2023-12-09 23:24] LABS: BILIRUBIN,URINE NEGATIVE (Neg); CLARITY,URINE CLEAR (Clear); COLOR,URINE YELLOW (Yellow); GLUCOSE, URINE NEGATIVE (Neg); KETONES,URINE NEGATIVE (Neg); LEUKOCYTE ESTERASE ,URINE SMALL (Neg); NITRITES, URINE POSITIVE (Neg); OCCULT BLOOD,URINE TRACE-INTACT (Neg); PH,URINE 5.5 (4.8-8.0); PROTEIN,URINE NEGATIVE (Neg); UROBILINOGEN,URINE 0.2 E.U/dL (0.2-1.0)
[2023-12-09 23:25] LABS: UA COLLECTION TYPE FOLEY CATH
[2023-12-09 23:31] LABS: BACTERIA,URINE FEW /HPF (Neg); RBC,URINE 0-2 /HPF (0-2); SQUAMOUS EPITHELIAL CELL,UR FEW /LPF (FEW)
[2023-12-09] MEDS: fentaNYL/PF 50MCG/1 ML 2ML syringe IV ONE (23:50)
[2023-12-10] VITALS (7 sets, daily range): BP systolic 130–164; BP diastolic 73–90; PULSE 54–93; RESP 14–16; TEMP 97.6–99.2; O2SAT 92–97
[2023-12-10] MEDS ORDERED: acetaminophen 325mg tablet PO PRN (00:45)
[2023-12-10] MEDS ORDERED: magnesium sulf-water 2g/50mL 50 ML IV PRN (00:45)
[2023-12-10] MEDS ORDERED: metoclopramide 5 mg/ml inj IV PRN (00:45)
[2023-12-10] MEDS ORDERED: magnesium Cl slow-release 64mg tablet PO PRN (00:45)
[2023-12-10] MEDS ORDERED: ondansetron/PF 4mg/2ml inj IV PRN (00:45)
[2023-12-10] MEDS ORDERED: HYDROmorphone/PF 0.2 MG/ML SYRINGE IV PRN (00:45)
[2023-12-10] MEDS ORDERED: magnesium sulf-water 4G/100mL 100 ML IV PRN (00:45)
[2023-12-10] MEDS ORDERED: potassium Cl 20 mEq SR tablet PO PRN ×2 (00:45)
[2023-12-10] MEDS: morphine 4 MG/ML inj SYRINge IV ONE (00:50)
[2023-12-10] MEDS: ringers solution, lacted 1,000 ML IV SCH (01:19)
[2023-12-10] MEDS: HYDROmorphone inj. 0.5 MG/0.5 ML DISP.SYRIN IV PRN ×2 (01:21→03:46)
[2023-12-10] MEDS ORDERED: ONDA-243 PO (02:31)
[2023-12-10] MEDS ORDERED: HYDR-3965 PO (02:31)
[2023-12-10] MEDS ORDERED: FURO20TA4 PO (02:31)
[2023-12-10 04:50] LABS: MAGNESIUM 2.2 MG/DL (1.5-2.4)
[2023-12-10] MEDS: potassium Cl 40MEQ/1/2NS 520ml 520 ML IV PRN (05:23)
[2023-12-10] MEDS: K and/or MAG REPLACEMENT MC SCH (08:00)
[2023-12-10] MEDS: heparin, porcine 5000 units/ml vial SQ SCH (09:02)
[2023-12-10] MEDS: cefepime 1GM/NS ADD-VANTAGE 100 ML IV SCH (09:27)
[2023-12-10] MEDS ORDERED: sodium phosphate inj. 30 MMOL in dextrose 5%-water 250 ML IV PRN (13:30)
[2023-12-10] MEDS ORDERED: sodium phosphate inj. 15 MMOL in dextrose 5%-water 250 ML IV PRN (13:30)
[2023-12-10] MEDS ORDERED: Dextrose 10%-water IV solution 1,000 ML IV PRN (13:30)
[2023-12-10] MEDS ORDERED: Neutra Phos packet PO PRN (13:30)
[2023-12-10 14:21] LABS: PREALBUMIN 17.7 MG/DL (19-36)
[2023-12-10 17:19] LABS: ALANINE AMINOTRANSFERASE 17 U/L (12-78); ALBUMIN 2.7 G/DL (3.4-5.0); ALBUMIN/GLOBULIN RATIO 0.7 (1.1-1.5); ALKALINE PHOSPHATASE 72 IU/L (46-116); ANION GAP 5 (8-16); ASPARTATE AMINO TRANSFERASE 15 U/L (10-37); BILIRUBIN,TOTAL 0.5 MG/DL (0.1-1.0); BLOOD UREA NITROGEN 14 MG/DL (7-18); BUN/CREATININE RATIO 17.9 (10.0-20.0); CALCIUM 8.3 MG/DL (8.5-10.1); CHLORIDE 104 MMOL/L (99-107); CREATININE 0.78 MG/DL (0.40-0.90); GLUCOSE 92 MG/DL (70-104); MAGNESIUM 2.1 MG/DL (1.5-2.4); PHOSPHORUS 3.6 MG/DL (2.3-4.5); POTASSIUM 4.4 MMOL/L (3.5-5.1); SODIUM 139 MMOL/L (135-145); TOTAL CARBON DIOXIDE 29.6 MMOL/L (24-32); TOTAL PROTEIN 6.8 G/DL (6.4-8.2); TRIGLYCERIDES 100 MG/DL (20-135); eCRCL 51 ML/MIN; eGFR 74 ML/MIN
[2023-12-10] MEDS: fat emulsion 20% inj. 100 ML IV SCH (20:05)
[2023-12-11 05:45] LABS: BASOPHILS # (AUTO) 0.1 X10'3 (0-0.2); EOSINOPHILS # (AUTO) 0.2 X10'3 (0-0.9); EOSINOPHILS % (AUTO) 4.5 % (0-6); HEMATOCRIT 29.7 % (35.0-45.0); HEMOGLOBIN 9.6 g/dl (12.0-16.0); LYMPHOCYTES # (AUTO) 1.8 X10'3 (1.1-4.8); LYMPHOCYTES % (AUTO) 33.4 % (21-51); MEAN CORPUSCULAR HEMOGLOBIN 29.2 PG (27.0-31.0); MEAN CORPUSCULAR HGB CONC 32.4 g/dL (33.0-36.5); MEAN CORPUSCULAR VOLUME 90.2 FL (78-98); MEAN PLATELET VOLUME 7.5 FL (7.4-10.4); MONOCYTES # (AUTO) 0.5 X10'3 (0-0.9); MONOCYTES % (AUTO) 9.6 % (2-12); NEUTROPHILS # (AUTO) 2.7 X10'3 (1.8-7.7); NEUTROPHILS % (AUTO) 51.5 % (42-75); PLATELET COUNT 479 X10'3 (140-440); RED CELL DISTRIBUTION WIDTH 18.5 % (11.5-14.5); WHITE BLOOD COUNT 5.3 X10'3 (4.5-11.0)
[2023-12-11 05:59] LABS: ALANINE AMINOTRANSFERASE 17 U/L (12-78); ALBUMIN 2.5 G/DL (3.4-5.0); ALBUMIN/GLOBULIN RATIO 0.5 (1.1-1.5); ALKALINE PHOSPHATASE 68 IU/L (46-116); ANION GAP 7 (8-16); ASPARTATE AMINO TRANSFERASE 13 U/L (10-37); BILIRUBIN,TOTAL 0.5 MG/DL (0.1-1.0); BLOOD UREA NITROGEN 14 MG/DL (7-18); BUN/CREATININE RATIO 18.4 (10.0-20.0); CALCIUM 8.4 MG/DL (8.5-10.1); CHLORIDE 104 MMOL/L (99-107); CREATININE 0.76 MG/DL (0.40-0.90); GLUCOSE 88 MG/DL (70-104); MAGNESIUM 2.3 MG/DL (1.5-2.4); PHOSPHORUS 3.5 MG/DL (2.3-4.5); POTASSIUM 3.7 MMOL/L (3.5-5.1); SODIUM 140 MMOL/L (135-145); TOTAL CARBON DIOXIDE 29.1 MMOL/L (24-32); TOTAL PROTEIN 7.3 G/DL (6.4-8.2); eCRCL 52 ML/MIN; eGFR 76 ML/MIN
[2023-12-11 06:00] VITALS: BP 143/64; PULSE 16; RESP 16; TEMP 98.2; O2SAT 93
[2023-12-11 08:00] VITALS: RESP 16; O2SAT 93
[2023-12-11] MEDS: amLODIPine 5mg tablet PO SCH (08:00)
[2023-12-11] MEDS: MVI, adult No.4 with vit. K 10 ML in dextrose 5% water 500ml 500 ML IV SCH (08:18)
[2023-12-11 10:00] VITALS: BP 167/81; RESP 17; TEMP 98.2; O2SAT 93
[2023-12-11 18:00] VITALS: BP 171/86; PULSE 65; RESP 14; TEMP 98.4; O2SAT 94
[2023-12-11 18:01] VITALS: O2SAT 93
[2023-12-11 20:00] VITALS: RESP 14; O2SAT 94
[2023-12-12 06:00] VITALS: BP 146/76; PULSE 60; RESP 16; TEMP 98.4; O2SAT 95
[2023-12-12 07:01] LABS: BASOPHILS % (AUTO) 0.6 % (0-1); EOSINOPHILS # (AUTO) 0.3 X10'3 (0-0.9); HEMATOCRIT 30.8 % (35.0-45.0); HEMOGLOBIN 10.1 g/dl (12.0-16.0); LYMPHOCYTES # (AUTO) 1.6 X10'3 (1.1-4.8); LYMPHOCYTES % (AUTO) 29.8 % (21-51); MEAN CORPUSCULAR HEMOGLOBIN 29.2 PG (27.0-31.0); MEAN CORPUSCULAR HGB CONC 32.8 g/dL (33.0-36.5); MEAN CORPUSCULAR VOLUME 89.3 FL (78-98); MEAN PLATELET VOLUME 8.2 FL (7.4-10.4); MONOCYTES # (AUTO) 0.6 X10'3 (0-0.9); MONOCYTES % (AUTO) 10.8 % (2-12); NEUTROPHILS % (AUTO) 53.8 % (42-75); PLATELET COUNT 466 X10'3 (140-440); RED BLOOD COUNT 3.44 X10'6 (4.20-5.60); WHITE BLOOD COUNT 5.5 X10'3 (4.5-11.0)
[2023-12-12 07:36] LABS: ALANINE AMINOTRANSFERASE 15 U/L (12-78); ALBUMIN 2.6 G/DL (3.4-5.0); ALBUMIN/GLOBULIN RATIO 0.6 (1.1-1.5); ALKALINE PHOSPHATASE 69 IU/L (46-116); ANION GAP 8 (8-16); ASPARTATE AMINO TRANSFERASE 13 U/L (10-37); BILIRUBIN,TOTAL 0.4 MG/DL (0.1-1.0); BLOOD UREA NITROGEN 20 MG/DL (7-18); BUN/CREATININE RATIO 31.3 (10.0-20.0); CALCIUM 8.6 MG/DL (8.5-10.1); CHLORIDE 102 MMOL/L (99-107); CREATININE 0.64 MG/DL (0.40-0.90); GLUCOSE 97 MG/DL (70-104); MAGNESIUM 2.1 MG/DL (1.5-2.4); PHOSPHORUS 3.9 MG/DL (2.3-4.5); POTASSIUM 3.3 MMOL/L (3.5-5.1); SODIUM 138 MMOL/L (135-145); TOTAL CARBON DIOXIDE 27.9 MMOL/L (24-32); TOTAL PROTEIN 6.8 G/DL (6.4-8.2); eCRCL 65 ML/MIN; eGFR > 90 ML/MIN
[2023-12-12 08:00] VITALS: RESP 18; O2SAT 94
[2023-12-12 10:00] VITALS: BP 158/94; PULSE 67; RESP 16; TEMP 98.2; O2SAT 94
[2023-12-12 18:00] VITALS: BP 143/80; PULSE 96; RESP 16; TEMP 99.2; O2SAT 97
[2023-12-12 20:00] VITALS: RESP 16; O2SAT 97
[2023-12-12 22:00] VITALS: BP 191/85; PULSE 62; RESP 18; TEMP 98.2; O2SAT 97
[2023-12-13 05:52] LABS: BASOPHILS # (AUTO) 0.1 X10'3 (0-0.2); BASOPHILS % (AUTO) 1.1 % (0-1); EOSINOPHILS # (AUTO) 0.5 X10'3 (0-0.9); EOSINOPHILS % (AUTO) 6.6 % (0-6); HEMATOCRIT 29.9 % (35.0-45.0); HEMOGLOBIN 9.9 g/dl (12.0-16.0); LYMPHOCYTES # (AUTO) 1.7 X10'3 (1.1-4.8); LYMPHOCYTES % (AUTO) 22.9 % (21-51); MEAN CORPUSCULAR HEMOGLOBIN 29.3 PG (27.0-31.0); MONOCYTES # (AUTO) 0.5 X10'3 (0-0.9); MONOCYTES % (AUTO) 7.1 % (2-12); NEUTROPHILS # (AUTO) 4.7 X10'3 (1.8-7.7); NEUTROPHILS % (AUTO) 62.3 % (42-75); PLATELET COUNT 465 X10'3 (140-440); RED BLOOD COUNT 3.36 X10'6 (4.20-5.60); RED CELL DISTRIBUTION WIDTH 17.8 % (11.5-14.5); WHITE BLOOD COUNT 7.5 X10'3 (4.5-11.0)
[2023-12-13 06:13] LABS: ALANINE AMINOTRANSFERASE 16 U/L (12-78); ALBUMIN 2.5 G/DL (3.4-5.0); ALBUMIN/GLOBULIN RATIO 0.6 (1.1-1.5); ALKALINE PHOSPHATASE 70 IU/L (46-116); ANION GAP 6 (8-16); ASPARTATE AMINO TRANSFERASE 13 U/L (10-37); BILIRUBIN,TOTAL 0.4 MG/DL (0.1-1.0); BLOOD UREA NITROGEN 22 MG/DL (7-18); BUN/CREATININE RATIO 33.3 (10.0-20.0); CALCIUM 8.7 MG/DL (8.5-10.1); CHLORIDE 103 MMOL/L (99-107); CREATININE 0.66 MG/DL (0.40-0.90); GLUCOSE 92 MG/DL (70-104); MAGNESIUM 2.1 MG/DL (1.5-2.4); POTASSIUM 3.5 MMOL/L (3.5-5.1); SODIUM 138 MMOL/L (135-145); TOTAL CARBON DIOXIDE 29.3 MMOL/L (24-32); TOTAL PROTEIN 6.8 G/DL (6.4-8.2); eCRCL 60 ML/MIN; eGFR 90 ML/MIN
[2023-12-13 07:28] VITALS: BP 147/77; PULSE 60; RESP 15; TEMP 98; O2SAT 97
[2023-12-13 10:00] VITALS: BP 133/69; PULSE 58; RESP 14; TEMP 98.7; O2SAT 96
[2023-12-13] MEDS: Chloraseptic (Phenol) Spray 177ml MM PRN (16:31)
[2023-12-13 18:00] VITALS: BP 142/73; PULSE 62; RESP 14; TEMP 98.6; O2SAT 94
[2023-12-13 20:00] VITALS: RESP 14; O2SAT 94
[2023-12-13 22:00] VITALS: BP 130/72; PULSE 56; RESP 18; TEMP 97.8; O2SAT 95
[2023-12-14] MEDS: HYDROmorphone/PF 0.2 MG/ML SYRINGE IV PRN (00:06)
[2023-12-14 05:58] LABS: BASOPHILS # (AUTO) 0.1 X10'3 (0-0.2); BASOPHILS % (AUTO) 0.9 % (0-1); EOSINOPHILS # (AUTO) 0.6 X10'3 (0-0.9); EOSINOPHILS % (AUTO) 7.6 % (0-6); HEMATOCRIT 29.9 % (35.0-45.0); HEMOGLOBIN 9.8 g/dl (12.0-16.0); LYMPHOCYTES # (AUTO) 1.7 X10'3 (1.1-4.8); LYMPHOCYTES % (AUTO) 21.8 % (21-51); MEAN CORPUSCULAR HEMOGLOBIN 29.2 PG (27.0-31.0); MEAN CORPUSCULAR HGB CONC 32.8 g/dL (33.0-36.5); MEAN CORPUSCULAR VOLUME 89.1 FL (78-98); MEAN PLATELET VOLUME 8.3 FL (7.4-10.4); MONOCYTES # (AUTO) 0.6 X10'3 (0-0.9); MONOCYTES % (AUTO) 7.4 % (2-12); NEUTROPHILS # (AUTO) 4.9 X10'3 (1.8-7.7); NEUTROPHILS % (AUTO) 62.3 % (42-75); PLATELET COUNT 466 X10'3 (140-440); RED BLOOD COUNT 3.36 X10'6 (4.20-5.60); WHITE BLOOD COUNT 7.8 X10'3 (4.5-11.0)
[2023-12-14 06:37] LABS: ALANINE AMINOTRANSFERASE 16 U/L (12-78); ALBUMIN 2.5 G/DL (3.4-5.0); ALBUMIN/GLOBULIN RATIO 0.6 (1.1-1.5); ALKALINE PHOSPHATASE 79 IU/L (46-116); ANION GAP 8 (8-16); ASPARTATE AMINO TRANSFERASE 13 U/L (10-37); BILIRUBIN,TOTAL 0.4 MG/DL (0.1-1.0); BLOOD UREA NITROGEN 27 MG/DL (7-18); CALCIUM 8.5 MG/DL (8.5-10.1); CHLORIDE 103 MMOL/L (99-107); CREATININE 0.73 MG/DL (0.40-0.90); GLUCOSE 103 MG/DL (70-104); MAGNESIUM 2.1 MG/DL (1.5-2.4); PHOSPHORUS 4.8 MG/DL (2.3-4.5); POTASSIUM 3.2 MMOL/L (3.5-5.1); PREALBUMIN 13.4 MG/DL (19-36); SODIUM 140 MMOL/L (135-145); TOTAL CARBON DIOXIDE 28.6 MMOL/L (24-32); TOTAL PROTEIN 6.9 G/DL (6.4-8.2); TRIGLYCERIDES 103 MG/DL (20-135); eCRCL 57 ML/MIN; eGFR 80 ML/MIN
[2023-12-14 07:10] VITALS: BP 138/68; PULSE 58; RESP 16; TEMP 98.1; O2SAT 97
[2023-12-14] MEDS ORDERED: potassium Cl 40MEQ/1/2NS 520ml 520 ML IV PRN (09:30)
[2023-12-14] MEDS ORDERED: potassium Cl 20 mEq SR tablet PO PRN ×2 (09:30)
[2023-12-14] MEDS ORDERED: magnesium sulf-water 2g/50mL 50 ML IV PRN (09:30)
[2023-12-14] MEDS ORDERED: magnesium Cl slow-release 64mg tablet PO PRN (09:30)
[2023-12-14] MEDS ORDERED: magnesium sulf-water 4G/100mL 100 ML IV PRN (09:30)
[2023-12-14 11:00] VITALS: BP 132/66; PULSE 59; RESP 12; TEMP 97.7; O2SAT 97
[2023-12-14] MEDS: docusate sodium 100mg/10ml UD cup PO SCH (11:54)
[2023-12-14] MEDS ORDERED: SULF1TAB49 PO (17:46)
[2023-12-14 20:00] VITALS: RESP 16; O2SAT 99
[2023-12-14] MEDS: mag hydrox/Alum hydrox/simeth 30ml oral suspension PO PRN (21:33)
== END 2023-12-14 22:15 | disposition home health service (06) | DRG 389 ==
LOC: ER 21:43 → ED HOLD 12-10 00:47 → SUR 3N 12-10 02:55
PROVIDERS: ADMIT Surgery; ATTEND Internal Medicine
DX: K56.7 Ileus, unspecified (principal); C78.6 Secondary malignant neoplasm of retroperitoneum and peritoneum; N13.6 Pyonephrosis; C78.7 Secondary malignant neoplasm of liver and intrahepatic bile duct; R18.8 Other ascites; K56.609 Unspecified intestinal obstruction, unspecified as to partial versus complete obstruction; E87.6 Hypokalemia; R73.9 Hyperglycemia, unspecified; I10 Essential (primary) hypertension; B96.5 Pseudomonas (aeruginosa) (mallei) (pseudomallei) as the cause of diseases classified elsewhere; Z90.81 Acquired absence of spleen; Z93.3 Colostomy status; Z87.440 Personal history of urinary (tract) infections; Z85.89 Personal history of malignant neoplasm of other organs and systems; Z88.1 Allergy status to other antibiotic agents; Z79.899 Other long term (current) drug therapy; Z88.8 Allergy status to other drugs, medicaments and biological substances; Z88.6 Allergy status to analgesic agent
CPT/HCPCS: 36415; 71045; 74176; 80053; 81001; 82948; 83540; 83690; 83735; 84100; 84132; 84134; 84145; 84478; 84484; 85025; 87077; 87081; 87088; 87186; 96374; 96375; 97116; 97161; 97530; 99285; A4314; A4358; A4421; A5200; G0378; J0692; J1170; J1644; J2270; J2405; J3010; J3480; J3490; J7030; J7040; J7060; J7120